=== PATIENT | female | born 1985 | race American Indian/Alaskan Native ===

== ENCOUNTER 2019-01-19 11:19 | Outpatient (CLI) | payer MEDICAID ==
[2019-01-19 14:26] VITALS: BP 116/68
== END 2019-01-19 15:13 | disposition home or self-care (01) ==
LOC: TRG 11:19
PROVIDERS: ATTEND Obstetrics & Gynecology
DX: O62.9 Abnormality of forces of labor, unspecified (principal); Z3A.38 38 weeks gestation of pregnancy